=== PATIENT | female | born 1955 | race Caucasian/White ===

== ENCOUNTER 2019-12-03 07:35 | Day surgery (SDC) | payer OTHER, SELFPAY ==
[~2019-12-03] VITALS: Ht 165.1 cm; Wt 68.9 kg
[2019-12-03] MEDS ORDERED: LIDOCAINE 2% 100 MG/5 ML UJET TP ONE (09:39)
[2019-12-03] MEDS ORDERED: fentaNYL 0.05 MG/ML VIAL ONE (09:39)
== END 2019-12-03 10:40 | disposition home or self-care (01) ==
LOC: MDS 07:35 → MMU 07:36 → MDS 10:40
PROVIDERS: ATTEND Internal Medicine Gastroenterology
DX: Z12.11 Encounter for screening for malignant neoplasm of colon (principal); Z11.59 Encounter for screening for other viral diseases; D12.5 Benign neoplasm of sigmoid colon; K21.9 Gastro-esophageal reflux disease without esophagitis; I10 Essential (primary) hypertension; Z98.890 Other specified postprocedural states; Z80.0 Family history of malignant neoplasm of digestive organs; Z86.010 Personal history of colon polyps; Z79.899 Other long term (current) drug therapy
CPT/HCPCS: 45385; J3010; U0003